=== PATIENT | female | born 1945 | race Caucasian/White ===

== ENCOUNTER 2018-03-21 15:47 | Emergency (ER) | payer OTHER ==
[~2018-03-21] VITALS: Ht 160 cm; Wt 79.0 kg
[~2018-03-21 15:47] MED LIST: AMOXICILLIN/CL875 MG OR; BACTROBAN2 % EX; DIFLUCAN150 MG OR; LIPITOR40 MG PO
[2018-03-21 16:53] LABS: URINE BLOOD DIPSTICK LARGE (NEGATIVE); URINE COLOR YELLOW; URINE GLUCOSE - DIPSTICK NEGATIVE (NEGATIVE); URINE KETONE TRACE mg/dL (NEGATIVE); URINE LEUK ESTERASE NEGATIVE (NEGATIVE); URINE NITRITE - DIPSTICK NEGATIVE (Negative); URINE PH 5.5 (4.5-8.0); URINE PROTEIN - DIPSTICK TRACE mg/dL (NEG-TRACE); URINE SPECIFIC GRAVITY >=1.030; URINE UROBILINOGEN - DIPSTICK 0.2 E.U./dL (0.2)
[2018-03-21 17:02] LABS: URINE CLARITY CLEAR
[2018-03-21 17:03] LABS: URINE BILIRUBIN - DIPSTICK NEGATIVE (NEGATIVE)
[2018-03-21 17:10] LABS: URINE SQUAMOUS EPITHELIAL CELL FEW EPI/hpf (0-FEW)
[2018-03-21] MEDS ORDERED: PYRIDIUM200 MG PO (18:17)
[2018-03-21] MEDS ORDERED: KEFLEX500 M1 PO (18:17)
[2018-03-21 18:20] VITALS: BP 139/85
== END 2018-03-21 18:20 | disposition home or self-care (01) | DRG 690 ==
LOC: ED 15:47
PROVIDERS: Family Medicine
DX: N39.0 Urinary tract infection, site not specified (principal); R35.0 Frequency of micturition

== ENCOUNTER 2018-04-12 15:04 | Emergency (ER) | payer OTHER ==
[~2018-04-12] VITALS: Ht 160 cm; Wt 80.0 kg
[~2018-04-12 15:04] MED LIST changes: +KEFLEX500 M1 PO; +PYRIDIUM200 MG PO
[2018-04-12 15:30] LABS: URINE BILIRUBIN - DIPSTICK NEGATIVE (NEGATIVE); URINE BLOOD DIPSTICK TRACE-INTACT (NEGATIVE); URINE COLOR YELLOW; URINE GLUCOSE - DIPSTICK NEGATIVE (NEGATIVE); URINE KETONE NEGATIVE (NEGATIVE); URINE LEUK ESTERASE NEGATIVE (NEGATIVE); URINE NITRITE - DIPSTICK NEGATIVE (Negative); URINE PROTEIN - DIPSTICK NEGATIVE (NEG-TRACE); URINE SPECIFIC GRAVITY >=1.030; URINE UROBILINOGEN - DIPSTICK 0.2 E.U./dL (0.2)
[2018-04-12] MEDS ORDERED: OMNICEF300 M1 PO (15:51)
[2018-04-12 15:56] VITALS: BP 146/87
== END 2018-04-12 16:08 | disposition home or self-care (01) | DRG 690 ==
LOC: ED 15:04
PROVIDERS: Family Medicine
DX: N30.10 Interstitial cystitis (chronic) without hematuria (principal)